=== PATIENT | female | born 1960 | race American Indian/Alaskan Native ===

== ENCOUNTER 2020-07-24 19:50 | Emergency (ER) | payer MEDICAID, MEDICARE ==
[2020-07-24] MEDS ORDERED: ASPIRIN 325 MG TAB PO ONE (20:29)
--- NOTE | 2020-07-24 20:34 | Event Note ---
ED Screening Note Date of service: 07/24/20 ED Screening Note: 60-year-old -English female with a history of hypertension who presents to the ED with complaint of acute onset left-sided chest pain that radiates to the left shoulder for the last 2 days, worse in the last 12 hours. Patient denies cough, shortness of breath, fever, chills, nausea, vomiting, traumatic injury, fall, heavy lifting, dizziness, numbness and tingling or weakness of upper extremities bilaterally, change in vision, back pain, neck pain or syncope. This initial assessment/diagnostic orders/clinical plan/treatment(s) is/are subject to change based on patients health status, clinical progression and re- assessment by fellow clinical providers in the ED. Further treatment and workup at subsequent clinical providers discretion. Patient/guardian urged not to elope from the ED as their condition may be serious if not clinically assessed and managed. Initial orders include: CBC, CMP, EKG, troponin, BNP, chest x-ray
[2020-07-24 20:58] LABS: Basophils % (Auto) 0.5 % (0.0-1.8); Eosinophils # (Auto) 0.1 K/mm3 (0.0-0.4); Eosinophils % (Auto) 1.2 % (0.0-4.3); Hematocrit 42.7 % (30.3-42.9); Hemoglobin 14.6 gm/dl (10.1-14.3); Lymphocytes # (Auto) 2.5 K/mm3 (1.2-5.4); Lymphocytes % (Auto) 36.4 % (13.4-35.0); Mean Corpuscular HGB Conc 34 % (30-34); Mean Corpuscular Volume 94 fl (79-97); Monocytes % (Auto) 14.9 % (0.0-7.3); Platelet Count 265 K/mm3 (140-440); Red Blood Count 4.57 M/mm3 (3.65-5.03); Red Cell Distribution Width 13.7 % (13.2-15.2)
[2020-07-24 21:24] LABS: Alanine Aminotransferase 20 units/L (7-56); Albumin 4.3 g/dL (3.9-5); BUN/Creatinine Ratio 20; Blood Urea Nitrogen 16 mg/dL (7-17); Calcium 10.4 mg/dL (8.4-10.2); Hemolysis Index 12
--- NOTE | 2020-07-24 21:25 | XRay Report ---
CHEST 2 VIEWS INDICATION / CLINICAL INFORMATION: chest pain. COMPARISON: None available. FINDINGS: SUPPORT DEVICES: None. HEART / MEDIASTINUM: No significant abnormality. LUNGS / PLEURA: Minimal left basilar airspace disease No pneumothorax. ADDITIONAL FINDINGS: No significant additional findings. IMPRESSION: Minimal left basilar airspace disease is present. The right lung is clear Signer Name: Jesse Rossi MD FACR Signed: 07/24/2020 9:20 PM Workstation Name: [id number]
[2020-07-24] MEDS ORDERED: AZITHROMYCIN 250 MG TAB PO ONE (23:52)
--- NOTE | 2020-07-24 23:57 | Emergency Department Report ---
ED Chest Pain HPI - General Chief Complaint: Chest Pain Stated Complaint: PAIN IN SHOULDER AND NECK PUI?: No Time Seen by Provider: 07/24/20 21:24 Source: patient, family Mode of arrival: Ambulatory Limitations: No Limitations - History of Present Illness Initial Comments: Chief complaint: "I had a little bit of chest pain." HPI: This is a 60-year-old female with history of hypertension, dyslipidemia, asthma, thyroid disease who presents with chest pain pressure which began on Sunday. Mild central without radiation. Patient stated that the chest pain went away. She now has upper back pain rating to the neck. No history of cardiac disease. She has had mild cough. She is followed [facility]. No family history of cardiac disease. MD Complaint: chest pain -: Gradual, days(s) (2) Onset: during rest Pain Location: substernal Pain Radiation: none Severity scale (0 -10): 0 Consistency: now resolved Improves With: nothing Worsens With: nothing Other Symptoms: cough - Related Data Home Medications Medication Instructions Recorded Confirmed Last Taken Albuterol Sulfate [Ventolin HFA] 2 puff IH Q4H PRN 04/06/14 04/06/14 Unknown Fluticasone/Salmeterol [Advair 1 puff IH BID 04/06/14 04/06/14 Unknown Diskus 250-50 mcg] Previous Rx's Medication Instructions Recorded Last Taken Type Beclomethasone Dipropionate [Qvar 1 inhalation IH BID #1 aer.w.adap 04/06/14 Unknown Rx 80MCG] RX: Albuterol Mdi (or & Nicu Only) 2 puff IH Q4HR PRN #1 inh 04/06/14 Unknown Rx [ProAir HFA Inhaler] RX: predniSONE [Deltasone] 20 mg PO TID #9 tab 06/14/14 Unknown Rx RX: traMADoL [Ultram 50 MG tab] 50 mg PO Q6HR PRN #14 tablet 08/11/14 Unknown Rx RX: Metoprolol [Lopressor TAB] 50 mg PO BID #60 tablet 04/13/15 Unknown Rx RX: hydroCHLOROthiazide [HCTZ] 25 mg PO QDAY #30 tablet 04/13/15 Unknown Rx RX: methIMAzole [Methimazole] 10 mg PO BID #30 tablet 10/20/15 Unknown Rx RX: Azithromycin [Zithromax TAB] 250 mg PO QDAY 4 Days #4 tablet 07/24/20 Unknow n Rx Allergies Allergy/AdvReac Type Severity Reaction Status Date / Time lisinopril Allergy Hives Verified 08/11/14 15:32 Heart Score - HEART Score History: Slightly suspicious EKG: Normal Age: 45-65 Risk factors: 1-2 risk factors Troponin: < normal limit HEART Score: 2 ED Review of Systems ROS: Stated complaint: PAIN IN SHOULDER AND NECK Other details as noted in HPI Comment: All other systems reviewed and negative Constitutional: denies: fever, malaise Respiratory: cough. denies: shortness of breath Cardiovascular: chest pain ED Past Medical Hx - Past Medical History Previous Medical History?: Yes Hx Hypertension: Yes Hx Headaches / Migraines: Yes Hx Asthma: Yes Additional medical history: thyroid disease - Surgical History Past Surgical History?: Yes Additional Surgical History: TUBAL LIGATION - Family History Family history: hypertension - Social History Smoking Status: Never Smoker Substance Use Type: None - Medications Home Medications: Home Medications Medication Instructions Recorded Confirmed Last Taken Type Albuterol Sulfate [Ventolin HFA] 2 puff IH Q4H PRN 04/06/14 04/06/14 Unknown History Beclomethasone Dipropionate [Qvar 1 inhalation IH BID #1 aer.w.adap 04/06/14 Unknown Rx 80MCG] Fluticasone/Salmeterol [Advair 1 puff IH BID 04/06/14 04/06/14 Unknown History Diskus 250-50 mcg] RX: Albuterol Mdi (or & Nicu Only) 2 puff IH Q4HR PRN #1 inh 04/06/14 Unknown Rx [ProAir HFA Inhaler] RX: predniSONE [Deltasone] 20 mg PO TID #9 tab 06/14/14 Unknown Rx RX: traMADoL [Ultram 50 MG tab] 50 mg PO Q6HR PRN #14 tablet 08/11/14 Unknown Rx RX: Metoprolol [Lopressor TAB] 50 mg PO BID #60 tablet 04/13/15 Unknown Rx RX: hydroCHLOROthiazide [HCTZ] 25 mg PO QDAY #30 tablet 04/13/15 Unknown Rx RX: methIMAzole [Methimazole] 10 mg PO BID #30 tablet 04/13/15 Unknown Rx RX: Azithromycin [Zithromax TAB] 250 mg PO QDAY 4 Days #4 tablet 07/24/20 Unknown Rx ED Physical Exam - General Limitations: No Limitations General appearance: alert, in no apparent distress, other (Well-appearing nontoxic appears comfortable) - Head Head exam: Present: atraumatic, normocephalic - Eye Eye exam: Present: normal appearance - ENT ENT exam: Present: mucous membranes moist - Neck Neck exam: Present: normal inspection, full ROM - Respiratory Respiratory exam: Present: normal lung sounds bilaterally. Absent: respiratory distress - Cardiovascular Cardiovascular Exam: Present: regular rate, normal rhythm, normal heart sounds. Absent: systolic murmur, diastolic murmur, rubs, gallop - GI/Abdominal GI/Abdominal exam: Present: soft, normal bowel sounds. Absent: distended, tenderness, guarding, rebound - Extremities Exam Extremities exam: Present: normal inspection - Neurological Exam Neurological exam: Present: alert, oriented X3 - Psychiatric Psychiatric exam: Present: normal affect, normal mood - Skin Skin exam: Present: warm, dry, intact, normal color. Absent: rash ED Course Vital Signs 07/24/20 07/24/20 07/24/20 20:16 21:30 21:31 Temperature 98.5 F Pulse Rate 80 78 Respiratory 18 18 18 Rate Blood Pressure 181/90 Blood Pressure 153/86 [Left] O2 Sat by Pulse 99 98 Oximetry ED Medical Decision Making - Lab Data Result diagrams: 07/24/20 20:39 07/24/20 20:39 Laboratory Results - last 24 hr 07/24/20 07/24/20 20:39 20:39 WBC 6.8 RBC 4.57 Hgb 14.6 H Hct 42.7 MCV 94 MCH 32 MCHC 34 RDW 13.7 Plt Count 265 Lymph % (Auto) 36.4 H [place] % (Auto) 14.9 H Eos % (Auto) 1.2 Baso % (Auto) 0.5 Lymph # (Auto) 2.5 [place] # (Auto) 1.0 H Eos # (Auto) 0.1 Baso # (Auto) 0.0 Seg Neutrophils % 47.0 Seg Neutrophils # 3.2 Sodium 140 Potassium 3.8 Chloride 99.7 Carbon Dioxide 32 H Anion Gap 12 BUN 16 Creatinine 0.8 Estimated GFR > 60 BUN/Creatinine Ratio 20 Glucose 105 H Calcium 10.4 H Total Bilirubin 0.30 AST 19 ALT 20 Alkaline Phosphatase 64 Troponin T < 0.010 NT-Pro-B Natriuret Pep 36.46 Total Protein 8.2 Albumin 4.3 Albumin/Globulin Ratio 1.1 Laboratory Results - last 72 hr 07/24/20 07/24/20 07/24/20 20:39 20:39 22:18 WBC 6.8 RBC 4.57 Hgb 14.6 H Hct 42.7 MCV 94 MCH 32 MCHC 34 RDW 13.7 Plt Count 265 Lymph % (Auto) 36.4 H [place] % (Auto) 14.9 H Eos % (Auto) 1.2 Baso % (Auto) 0.5 Lymph # (Auto) 2.5 [place] # (Auto) 1.0 H Eos # (Auto) 0.1 Baso # (Auto) 0.0 Seg Neutrophils % 47.0 Seg Neutrophils # 3.2 Sodium 140 Potassium 3.8 Chloride 99.7 Carbon Dioxide 32 H Anion Gap 12 BUN 16 Creatinine 0.8 Estimated GFR > 60 BUN/Creatinine Ratio 20 Glucose 105 H Calcium 10.4 H Total Bilirubin 0.30 AST 19 ALT 20 Alkaline Phosphatase 64 Troponin T < 0.010 < 0.010 NT-Pro-B Natriuret Pep 36.46 Total Protein 8.2 Albumin 4.3 Albumin/Globulin Ratio 1.1 - EKG Data -: EKG Interpreted by Or EKG shows normal: sinus rhythm, axis, intervals, QRS complexes, ST-T waves Rate: normal - EKG Data Interpretation: normal EKG 07/24/20 23:54 EKG obtained 2033 EKG interpreted by ut Normal sinus rhythm normal rate normal axis normal intervals no ST elevation no ST-T signs of ischemia normal EKG rate 80 bpm - Radiology Data Radiology results: report reviewed CHEST 2 VIEWS INDICATION / CLINICAL INFORMATION: chest pain. COMPARISON: None available. FINDINGS: SUPPORT DEVICES: None. HEART / MEDIASTINUM: No significant abnormality. LUNGS / PLEURA: Minimal left basilar airspace disease No pneumothorax. ADDITIONAL FINDINGS: No significant additional findings. IMPRESSION: Minimal left basilar airspace disease is present. The right lung is clear - Medical Decision Making Mrs. Fisher is a 60-year-old female history of hypertension dyslipidemia asthma thyroid disease who presents with mild nondescript chest pain. Patient also did report cough. Atypical for ACS. No indication of pulmonary embolism without persisting pain or symptoms. Chest radiograph equivocal for pneumonia. However with history of cough, will cover for community-acquired pneumonia. Prescribed azithromycin. Strongly suggested recommend outpatient cardiac risk stratification with stress test by emergency detail driver. I have faxed cardiology referral request to [facility]. Troponin x2 -. EKG is normal. Heart score is 2. Patient is discharged home. Critical care attestation.: If time is entered above; I have spent that time in minutes in the direct care of this critically ill patient, excluding procedure time. ED Disposition Clinical Impression: Community acquired pneumonia, Chest pain Disposition: TO HOME OR SELFCARE Is pt being admited?: No Does the pt Need Aspirin: No Condition: Stable Instructions: Nonspecific Chest Pain, Adult, [id number]-Vias, Community-Acquired Pneumonia, Adult, [id number], Chest Pain (ED), Bacterial Pneumonia (ED) Prescriptions: RX: Azithromycin [Zithromax TAB] 250 mg PO QDAY 4 Days #4 tablet Referrals: CARLOS BANKS MD [Primary Care Provider] - 3-5 Days BECKY WOODWARD MD [Staff Physician] - 3-5 Days
[2020-07-25 00:53] VITALS: BP 150/80
== END 2020-07-25 00:55 | disposition home or self-care (01) ==
LOC: ED 19:50
DX: J18.8 Other pneumonia, unspecified organism (principal); I10 Essential (primary) hypertension; G43.909 Migraine, unspecified, not intractable, without status migrainosus; J45.909 Unspecified asthma, uncomplicated; Z98.51 Tubal ligation status; Z79.899 Other long term (current) drug therapy
CPT/HCPCS: 36415; 71046; 80053; 83880; 84484; 85025; 93005

== ENCOUNTER 2022-02-20 10:00 | Emergency (ER) | payer MEDICARE ==
[2022-02-20 10:57] VITALS: BP 189/99
--- NOTE | 2022-02-20 10:59 | Event Note ---
ED Screening Note ED Screening Note: 61-year-old female presenting with left-sided chest pain feeling of faintness fatigue dizziness which all started this morning. Symptoms are improving at the time of interview. 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 In the setting of a significantly high volume and record number of patients presenting to the emergency department and the fact that we have a limited space to see patients we have implemented the provider in triage protocol this allows an expedited initial exam of patients that might otherwise have left without being seen or who would wait longer than usual to be seen by provider. I interviewed the patient and performed a limited physical exam. This patient is a pulled from the waiting room to triage room for an initial assessment of adrenal studies and then returned to the waiting room pending results of the studies. The ultimate final evaluation and disposition may be performed by another provider depending on room and provider availability.
[2022-02-20 13:11] LABS: Hematocrit 41.6 % (30.3-42.9); Mean Corpuscular HGB Conc 34 % (30-34); Mean Corpuscular Volume 93 fl (79-97); Platelet Count 270 K/mm3 (140-440); Red Blood Count 4.47 M/mm3 (3.65-5.03); Red Cell Distribution Width 13.6 % (13.2-15.2)
[2022-02-20 13:33] LABS: Alanine Aminotransferase 15 units/L (7-56); Albumin 4.4 g/dL (3.9-5); BUN/Creatinine Ratio 10; Blood Urea Nitrogen 8 mg/dL (7-17); Calcium 10.7 mg/dL (8.4-10.2); Hemolysis Index 16
[2022-02-20] MEDS ORDERED: cloNIDine 0.1 MG TAB PO ONE (16:03)
--- NOTE | 2022-02-20 16:04 | Emergency Department Report ---
ED General Adult HPI - General Chief complaint: Chest Pain Stated complaint: CHEST PRESSURE FEELING FAINT PUI?: No Time Seen by Provider: 02/20/22 15:39 Source: patient Mode of arrival: Ambulatory Limitations: No Limitations - Related Data Home Medications Medication Instructions Recorded Confirmed Last Taken Albuterol Sulfate [Ventolin HFA] 2 puff IH Q4H PRN 04/06/14 04/06/14 Unknown Fluticasone/Salmeterol [Advair 1 puff IH BID 04/06/14 04/06/14 Unknown Diskus 250-50 mcg] Previous Rx's Medication Instructions Recorded Last Taken Type Albuterol Mdi (or & Nicu Only) 2 puff IH Q4HR PRN #1 inh 04/06/14 Unknown Rx [ProAir HFA Inhaler] Beclomethasone Dipropionate [Qvar 1 inhalation IH BID #1 aer.w.adap 04/06/14 Unknown Rx 80MCG] predniSONE [Deltasone] 20 mg PO TID #9 tab 06/14/14 Unknown Rx traMADoL [Ultram 50 MG tab] 50 mg PO Q6HR PRN #14 tablet 08/11/14 Unknown Rx Metoprolol [Lopressor TAB] 50 mg PO BID #60 tablet 04/13/15 Unknown Rx hydroCHLOROthiazide [HCTZ] 25 mg PO QDAY #30 tablet 04/13/15 Unknown Rx methIMAzole [Methimazole] 10 mg PO BID #30 tablet 04/13/15 Unknown Rx Azithromycin [Zithromax TAB] 250 mg PO QDAY 4 Days #4 tablet 07/24/20 Unknown Rx Allergies Allergy/AdvReac Type Severity Reaction Status Date / Time lisinopril Allergy Hives Verified 02/20/22 10:57 ED Review of Systems ROS: Stated complaint: CHEST PRESSURE FEELING FAINT Other details as noted in HPI Comment: All other systems reviewed and negative ED Past Medical Hx - Past Medical History Previous Medical History?: Yes Hx Hypertension: Yes Hx Headaches / Migraines: Yes Hx Asthma: Yes Additional medical history: thyroid disease. HLD - Surgical History Past Surgical History?: Yes Additional Surgical History: TUBAL LIGATION - Family History Family history: no significant - Social History Smoking Status: Never Smoker Substance Use Type: None - Medications Home Medications: Home Medications Medication Instructions Recorded Confirmed Last Taken Type Albuterol Mdi (or & Nicu Only) 2 puff IH Q4HR PRN #1 inh 04/06/14 Unknown Rx [ProAir HFA Inhaler] Albuterol Sulfate [Ventolin HFA] 2 puff IH Q4H PRN 04/06/14 04/06/14 Unknown History Beclomethasone Dipropionate [Qvar 1 inhalation IH BID #1 aer.w.adap 04/06/14 Unknown Rx 80MCG] Fluticasone/Salmeterol [Advair 1 puff IH BID 04/06/14 04/06/14 Unknown History Diskus 250-50 mcg] predniSONE [Deltasone] 20 mg PO TID #9 tab 06/14/14 Unknown Rx traMADoL [Ultram 50 MG tab] 50 mg PO Q6HR PRN #14 tablet 08/11/14 Unknown Rx Metoprolol [Lopressor TAB] 50 mg PO BID #60 tablet 04/13/15 Unknown Rx hydroCHLOROthiazide [HCTZ] 25 mg PO QDAY #30 tablet 04/13/15 Unknown Rx methIMAzole [Methimazole] 10 mg PO BID #30 tablet 04/13/15 Unknown Rx Azithromycin [Zithromax TAB] 250 mg PO QDAY 4 Days #4 tablet 07/24/20 Unknown Rx ED Physical Exam - General Limitations: No Limitations General appearance: alert, in no apparent distress - Head Head exam: Present: atraumatic, normocephalic - Eye Eye exam: Present: normal appearance - ENT ENT exam: Present: mucous membranes moist - Neck Neck exam: Present: normal inspection - Respiratory Respiratory exam: Present: normal lung sounds bilaterally. Absent: respiratory distress - Cardiovascular Cardiovascular Exam: Present: regular rate, normal rhythm. Absent: systolic murmur, diastolic murmur, rubs, gallop - GI/Abdominal GI/Abdominal exam: Present: soft, normal bowel sounds - Extremities Exam Extremities exam: Present: normal inspection - Back Exam Back exam: Present: normal inspection - Neurological Exam Neurological exam: Present: alert, oriented X3 - Psychiatric Psychiatric exam: Present: normal affect, normal mood - Skin Skin exam: Present: warm, dry, intact, normal color. Absent: rash ED Course Vital Signs 02/20/22 10:53 Temperature 97.5 F L Pulse Rate 76 Respiratory 16 Rate Blood Pressure 189/99 [Right] O2 Sat by Pulse 99 Oximetry - Reevaluation(s) Reevaluation #1: 02/20/22 17:16 HOME RX HCTZ METOP NAPROXYN ADVAIR STATIN ED Medical Decision Making - Lab Data Result diagrams: 02/20/22 12:50 02/20/22 12:50 - EKG Data EKG shows normal: sinus rhythm Rate: normal - EKG Data When compared to previous EKG there are: no significant change Interpretation: no acute changes - Radiology Data Radiology results: report reviewed, image reviewed SEE REPORT - Medical Decision Making Labs 02/20/22 02/20/22 12:50 12:50 WBC 6.1 RBC 4.47 Hgb 14.0 Hct 41.6 MCV 93 MCH 31 MCHC 34 RDW 13.6 Plt Count 270 Sodium 141 Potassium 4.3 Chloride 102.6 Carbon Dioxide 32 H Anion Gap 11 BUN 8 Creatinine 0.8 Estimated GFR > 60 BUN/Creatinine Ratio 10 Glucose 98 Calcium 10.7 H Total Bilirubin 0.20 AST 18 ALT 15 Alkaline Phosphatase 59 Troponin T < 0.010 Total Protein 7.9 Albumin 4.4 Albumin/Globulin Ratio 1.3 Vital Signs 02/20/22 10:53 Temperature 97.5 F L Pulse Rate 76 Respiratory 16 Rate Blood Pressure 189/99 [Right] O2 Sat by Pulse 99 Oximetry 12 LEAD NAP XRAY NAP LABS NOTED BP ELEVATED ON ARRIVAL TAKING HOME MEDS NO CP DC BP 150/70 - Differential Diagnosis URI/HTN Critical care attestation.: If time is entered above; I have spent that time in minutes in the direct care of this critically ill patient, excluding procedure time. ED Disposition Clinical Impression: HTN (hypertension), History of asthma Disposition: 01 HOME / SELF CARE / HOMELESS Is pt being admited?: No Does the pt Need Aspirin: No Condition: Stable Instructions: Hypertension, Adult, Hypertension (ED) Additional Instructions: CONTINUE HOME MEDS MONITOR BLOOD PRESSURE AND FOLLOW UP WITH PCP IT WAS ELEVATED TODAY AND IS LIKELY CONTRIBUTING TO YOUR SYMPTOMS ALL OF YOUR LABS, EKG AND XRAY WERE NORMAL LOW FAT LOW SALT DIET STAY WELL HYDRATED Referrals: JYOTSNA CARUSO MD [Staff Physician] - 3-5 Days Time of Disposition: 16:04
--- NOTE | 2022-02-20 16:04 | XRay Report ---
CHEST 2 VIEWS INDICATION / CLINICAL INFORMATION: CP. COMPARISON: 07/24/2020 FINDINGS: SUPPORT DEVICES: None. HEART / MEDIASTINUM: No significant abnormality. LUNGS / PLEURA: No acute findings. Stable mild interstitial disease in both lung bases. ADDITIONAL FINDINGS: No significant additional findings. IMPRESSION: 1. No acute findings. Signer Name: Edison Pope MD Signed: 02/20/2022 3:59 PM Workstation Name: [employer]
--- NOTE | 2022-02-21 13:14 | Electrocardiograph Report ---
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
== END 2022-02-20 17:43 | disposition home or self-care (01) ==
LOC: ED 10:00
DX: I10 Essential (primary) hypertension (principal); J45.909 Unspecified asthma, uncomplicated; G43.909 Migraine, unspecified, not intractable, without status migrainosus; Z98.51 Tubal ligation status; Z79.899 Other long term (current) drug therapy; Z88.8 Allergy status to other drugs, medicaments and biological substances
CPT/HCPCS: 36415; 71046; 80053; 84484; 85027; 93005; 99283

== ENCOUNTER 2022-03-16 12:26 | Emergency (ER) | payer MEDICARE ==
[2022-03-16] MEDS ORDERED: cloNIDine 0.2 MG TAB PO ONE (16:26)
[2022-03-16] MEDS ORDERED: cloNIDine 0.2 MG TAB ONE (16:27)
[2022-03-16 17:28] VITALS: BP 200/90
--- NOTE | 2022-03-18 11:44 | Electrocardiograph Report ---
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
== END 2022-03-17 05:07 | disposition left against medical advice (07) ==
LOC: ED 12:26
DX: I95.9 Hypotension, unspecified (principal); Z53.21 Procedure and treatment not carried out due to patient leaving prior to being seen by health care provider
CPT/HCPCS: 93005